=== PATIENT | female | born 1995 | race Caucasian/White ===

== ENCOUNTER 2022-03-30 22:12 | Emergency (ER) | payer OTHER ==
[~2022-03-30] VITALS: Ht 160 cm; Wt 91.0 kg
[2022-03-30 22:49] VITALS: BP 126/69
[2022-03-30] MEDS ORDERED: KETOROLAC 60MG/2ML VIAL IM STA (22:49)
[2022-03-30] MEDS ORDERED: IBUP-2029 PO (22:56)
[2022-03-30] MEDS ORDERED: ACETAMINOPHEN 325MG TABLET PO STA (22:57)
[2022-03-30] MEDS ORDERED: PENICILLIN G BENZATHINE 1,200,000 UNITS/2ML SYR IM ONE (23:00)
[2022-03-31] MEDS ORDERED: PENICILLIN G BENZATHINE 1,200,000 UNITS/2ML SYR IM NR (00:45)
== END 2022-03-31 04:18 | disposition home or self-care (01) ==
LOC: ER 22:12
DX: J03.90 Acute tonsillitis, unspecified (principal); R50.9 Fever, unspecified
CPT/HCPCS: 96372; 99283; J0561; J1885